=== PATIENT | male | born 1985 | race Two or more races ===

== ENCOUNTER 2023-01-26 01:23 | Emergency (ER) | payer OTHER ==
[~2023-01-26] VITALS: Ht 157.5 cm; Wt 63.0 kg
[2023-01-26] MEDS ORDERED: ceFAZolin 2 GM/D5W100ml 100 ML IV ONE (02:00)
[2023-01-26] MEDS ORDERED: TETANUS-DIPTH-ACEL PERTUSSIS 0.5ML SYR Tdap IM ONE (02:00)
[2023-01-26] MEDS ORDERED: SODIUM CHLORIDE 0.9% 1,000 ML IV ONE (02:00)
[2023-01-26 02:42] LABS: Basophils # (auto) 0.1 10 ^3/uL (0-0.2); Basophils % (auto) 0.8 % (0.0-2.0); Eosinophils # (auto) 0.2 10 ^3/uL (0-0.8); Eosinophils % (auto) 1.7 % (0.0-7.0); Hematocrit 33.7 % (41.0-53.0); Hemoglobin 11.5 g/dL (13.5-17.5); Lymphocytes # (auto) 2.8 10 ^3/uL (0.4-5.4); Lymphocytes % (auto) 31.1 % (10.0-50.0); Mean Corpuscular Hemoglobin 30.9 pg (28.0-32.0); Mean Corpuscular Hgb Conc. 34.2 g/dL (32.0-36.0); Mean Corpuscular Volume 90.3 fL (80.0-100.0); Monocytes # (auto) 0.8 10 ^3/uL (0-1.3); Monocytes % (auto) 8.9 % (0.0-12.0); Neutrophils # (auto) 5.2 10 ^3/uL (1.6-8.6); Neutrophils % (auto) 57.5 % (37.0-80.0); Nucleated Red Blood Cells % 0.1 %; Red Blood Cells 3.73 10^6/uL (4.5-5.90); Red Cell Distribution Width 14.3 % (11.8-14.3); White Blood Cell 9.1 10^3/uL (4.4-10.8)
[2023-01-26 02:47] LABS: INR 1.12 (0.9-1.15)
[2023-01-26 02:56] LABS: Alanine Aminotransferase 22 U/L (16-61); Albumin 3.3 g/dL (3.4-5.0); Anion Gap 5 (5-15); Blood Alcohol < 3.0 mg/dL (0-5); Blood Urea Nitrogen 6 mg/dL (7-18); Calcium 8.3 mg/dL (8.5-10.1); Carbon Dioxide 25 mmol/L (21-32); Chloride 106 mmol/L (98-107); GFR African American 151 mL/min; GFR Non-African American 125 mL/min; Glucose 84 mg/dL (74-106); Potassium 3.1 mmol/L (3.5-5.1); Sodium 136 mmol/L (136-145)
[2023-01-26 02:57] LABS: Acetaminophen 2.7 ug/mL (10-30)
[2023-01-26 02:59] LABS: Alkaline Phosphatase 59 U/L (45-117); Aspartate Aminotransferase 20 U/L (15-37); Bilirubin, Total 0.6 mg/dL (0.2-1.0); Total Protein 5.8 g/dL (6.4-8.2)
[2023-01-26] MEDS ORDERED: ceFAZolin 1GM/50ML 0 ML IV ONE (05:19)
[2023-01-26] MEDS ORDERED: HYDROcodone-ACET 10/325MG TAB PO ONE (12:15)
[2023-01-26 13:24] VITALS: BP 128/61
== END 2023-01-26 13:45 | disposition short-term general hospital (02) ==
LOC: ER 01:23
DX: S66.921A Laceration of unspecified muscle, fascia and tendon at wrist and hand level, right hand, initial encounter (principal); F41.9 Anxiety disorder, unspecified; F20.9 Schizophrenia, unspecified; F31.9 Bipolar disorder, unspecified; W25.XXXA Contact with sharp glass, initial encounter; Y93.89 Activity, other specified; Y92.89 Other specified places as the place of occurrence of the external cause; Y99.8 Other external cause status
CPT/HCPCS: 36415; 70450; 73201; 80053; 80320; 80329; 83605; 85025; 85610; 90471; 90715; 96365; 96366; 99285; J7030; J0690

== ENCOUNTER 2023-01-28 00:45 | Emergency (ER) | payer OTHER ==
[~2023-01-28] VITALS: Ht 162.6 cm; Wt 77.2 kg
[2023-01-28] MEDS ORDERED: TETANUS-DIPTH-ACEL PERTUSSIS 0.5ML SYR Tdap IM ONE (04:00)
[2023-01-28] MEDS ORDERED: cefTRIAXone SOD 1,000 MG VL IM ONE (04:00)
[2023-01-28] MEDS ORDERED: MUPI2CRE17 EX (04:41)
[2023-01-28] MEDS ORDERED: CEPH-322 PO (04:41)
[2023-01-28 04:50] VITALS: BP 138/78
== END 2023-01-28 05:00 | disposition home or self-care (01) ==
LOC: ER 00:45
DX: S41.111A Laceration without foreign body of right upper arm, initial encounter (principal); S61.411A Laceration without foreign body of right hand, initial encounter; X58.XXXA Exposure to other specified factors, initial encounter; Y93.89 Activity, other specified; Y92.89 Other specified places as the place of occurrence of the external cause; Y99.8 Other external cause status
CPT/HCPCS: 90471; 90715; 96372; 99284; J0696